=== PATIENT | female | born 1935 ===

== ENCOUNTER 2022-06-16 11:03 | Emergency (ER) | payer OTHER ==
[~2022-06-16] VITALS: Ht 167.6 cm; Wt 74.8 kg
[2022-06-16] MEDS ORDERED: CRESTOR10 MG (11:35)
[2022-06-16] MEDS ORDERED: AMOX1TAB5 (11:35)
[2022-06-16] MEDS ORDERED: ACTONEL150 MG (11:36)
[2022-06-16] MEDS ORDERED: TOPROL XL200 MG (11:36)
[2022-06-16] MEDS ORDERED: ELIQUIS2.5 MG (11:36)
[2022-06-16] MEDS ORDERED: LOSARTAN-HCTZ1 EACH (11:36)
== END 2022-06-16 15:08 | disposition home or self-care (01) ==
LOC: ER 11:03
DX: L03.115 Cellulitis of right lower limb (principal); I48.91 Unspecified atrial fibrillation; I10 Essential (primary) hypertension; I50.9 Heart failure, unspecified; N28.9 Disorder of kidney and ureter, unspecified; G47.30 Sleep apnea, unspecified; Z20.822 Contact with and (suspected) exposure to COVID-19

== ENCOUNTER 2022-07-31 13:04 | Inpatient (IN) | payer OTHER ==
[~2022-07-31] VITALS: Ht 152.4 cm; Wt 680.4 kg
[~2022-07-31 13:04] MED LIST: ACTONEL150 MG; AMOX1TAB5; CRESTOR10 MG; ELIQUIS2.5 MG; LOSARTAN-HCTZ1 EACH; TOPROL XL200 MG
== END 2022-08-24 10:37 | disposition expired | DRG 871 ==
LOC: ER 13:04 → MEDI 16:59 → ICU-2 16:59 → ICU 08-05 20:51 → MEDI 08-09 12:47
PROVIDERS: ADMIT Internal Medicine; ATTEND Internal Medicine
PROC: 30233N1 Transfusion of Nonautologous Red Blood Cells into Peripheral Vein, Percutaneous Approach (ICD-10-PCS; 2022-07-31)
PROC: 4A12X4Z Monitoring of Cardiac Electrical Activity, External Approach (ICD-10-PCS; 2022-07-31)
PROC: B24BYZZ Ultrasonography of Heart with Aorta using Other Contrast (ICD-10-PCS; 2022-07-31)
PROC: BW21ZZZ Computerized Tomography (CT Scan) of Abdomen and Pelvis (ICD-10-PCS; 2022-07-31)
PROC: BW28ZZZ Computerized Tomography (CT Scan) of Head (ICD-10-PCS; 2022-07-31)
PROC: 02HV33Z Insertion of Infusion Device into Superior Vena Cava, Percutaneous Approach (ICD-10-PCS; 2022-08-01)
PROC: 30233K1 Transfusion of Nonautologous Frozen Plasma into Peripheral Vein, Percutaneous Approach (ICD-10-PCS; 2022-08-01)
PROC: 30243N1 Transfusion of Nonautologous Red Blood Cells into Central Vein, Percutaneous Approach (ICD-10-PCS; 2022-08-02)
PROC: 0W9B3ZZ Drainage of Left Pleural Cavity, Percutaneous Approach (ICD-10-PCS; principal; 2022-08-14)
PROC: 0W993ZZ Drainage of Right Pleural Cavity, Percutaneous Approach (ICD-10-PCS; 2022-08-16)
PROC: 0W9B30Z Drainage of Left Pleural Cavity with Drainage Device, Percutaneous Approach (ICD-10-PCS; 2022-08-20)
DX: A41.9 Sepsis, unspecified organism (principal); J69.0 Pneumonitis due to inhalation of food and vomit; I21.A1 Myocardial infarction type 2; R65.21 Severe sepsis with septic shock; J90 Pleural effusion, not elsewhere classified; J15.212 Pneumonia due to Methicillin resistant Staphylococcus aureus; J96.00 Acute respiratory failure, unspecified whether with hypoxia or hypercapnia; I50.23 Acute on chronic systolic (congestive) heart failure; K92.0 Hematemesis; K92.1 Melena; I48.20 Chronic atrial fibrillation, unspecified; N17.9 Acute kidney failure, unspecified; E87.20 Acidosis, unspecified; F05 Delirium due to known physiological condition; I13.0 Hypertensive heart and chronic kidney disease with heart failure and stage 1 through stage 4 chronic kidney disease, or unspecified chronic kidney disease; Z66 Do not resuscitate; R57.1 Hypovolemic shock; R57.8 Other shock; D64.89 Other specified anemias; E87.6 Hypokalemia; E83.39 Other disorders of phosphorus metabolism; I27.21 Secondary pulmonary arterial hypertension; R53.81 Other malaise; E88.09 Other disorders of plasma-protein metabolism, not elsewhere classified; D63.8 Anemia in other chronic diseases classified elsewhere; B95.62 Methicillin resistant Staphylococcus aureus infection as the cause of diseases classified elsewhere; N18.9 Chronic kidney disease, unspecified; E78.5 Hyperlipidemia, unspecified; Z79.01 Long term (current) use of anticoagulants